=== PATIENT | female | born 1950 | race Caucasian/White ===

== ENCOUNTER 2016-11-18 15:33 | Emergency (ER) | payer MEDICARE ==
[2016-11-18 15:47] VITALS: TEMP 98.3
[2016-11-18] MEDS ORDERED: SODIUM CHLORIDE 0.9% 500 ML IV STA (16:11)
[2016-11-18] MEDS ORDERED: MECLIZINE 12.5 MG TAB PO STA (16:11)
--- NOTE | 2016-11-18 16:17 | ED ---
General Adult HPI - General Chief complaint: Dizziness Stated complaint: lightheaded dizzy Time Seen by Provider: 11/18/16 15:45 Source: patient, family, RN notes reviewed Mode of arrival: ambulatory Limitations: no limitations - History of Present Illness Initial comments: Chief complaint history of present illness; this is a 66-year-old female here with her . Patient reports that she bent down and became dizzy. Her helped her back to the house. Child bowel movement not loose. Slightly better at this time. She's had 3 of these dizzy episodes the last approximately one hour in the past several weeks. No headache. No chest pain or palpitations. She does have a history of the nares years ago. She does report taking Antivert with good results at that time. Denies any neuro deficits. She does suffer from seasonal ALLERGIES. - Related Data Home Medications Medication Instructions Recorded Confirmed Anastrozole [Arimidex] 1 mg PO DAILY 11/18/16 11/18/16 Calcium Carbonate/Vitamin D3 1 tab PO DAILY 11/18/16 11/18/16 [Calcium 600-Vit D3 400 Caplet] Cholecalciferol [Vitamin D3] 2,000 unit PO DAILY 11/18/16 11/18/16 Omeprazole [PriLOSEC] 20 mg PO AC-BRKFST 11/18/16 11/18/16 Spironolactone-Hctz 25-25Mg 0.5 tab PO DAILY 11/18/16 11/18/16 [Aldactazide 25-25Mg] Previous Rx's Medication Instructions Recorded Meclizine [Antivert] 25 mg PO TID #30 tab 11/18/16 Ondansetron Odt [Zofran ODT] 4 mg PO Q8HR PRN #5 tab 11/18/16 Allergies Allergy/AdvReac Type Severity Reaction Status Date / Time adhesive tape Allergy Rash/Hives Verified 11/18/16 16:23 codeine AdvReac Nausea Verified 11/18/16 16:23 Review of Systems ROS Statement: Those systems with pertinent positive or pertinent negative responses have been documented in the HPI. Review of systems. At this time the patient reports she's dizzy with head movement especially quickly left the right. Slightly nauseated but no vomiting. No chest palpitations. No shortness of breath and no neuro deficits other than dizziness. All systems are reviewed. Past medical problems significant for the nares years ago. Hypertension, GERD, breast cancer 2015 follow-up with surgery followed by chemotherapy. She also has chronically low platelets. The patient's surgeries include back surgery, mastectomy, total hysterectomy, bunions and knee scoping. The patient's family history no cancers or strokes. Patient has seasonal ALLERGIES and codeine upsets her stomach. Nonsmoker drinks alcohol rarely socially ROS Other: All systems not noted in ROS Statement are negative. Past Medical History Past Medical History: Cancer, GERD/Reflux, Hypertension Additional Past Medical History / Comment(s): vertigo History of Any Multi-Drug Resistant Organisms: None Reported Past Surgical History: Back Surgery, Breast Surgery, Hysterectomy, Orthopedic Surgery Additional Past Surgical History / Comment(s): ana luisa knee,bunions Past Psychological History: No Psychological Hx Reported Smoking Status: Never smoker Past Alcohol Use History: None Reported Past Drug Use History: None Reported General Exam - General Exam Comments Initial Comments: General: The patient is awake and alert, in no distress, and does not appear acutely ill. As a feeling slightly dizzy for several hours. She had 2 occasions in the last several weeks where after the dizziness started from bending over the last one away. No other associated sweats palpitations or chest pain. Mildly nauseated earlier. Vital signs show temperature 98.3 pulse 60 respiratory rate 20 pulse ox 99% room air blood pressure 130/74 Eye: Pupils are equal, round and reactive to light, extra-ocular movements are intact ; there is normal conjunctiva bilaterally. No signs of icterus. Ears, nose, mouth and throat: There are moist mucous membranes and no oral lesions. Neck: The neck is supple, there is no tenderness , no carotid bruit , no enlarged anterior cervical lymphadenopathy Cardiovascular: There is a regular rate and rhythm. No murmur, rub or gallop is appreciated. Respiratory: Lungs are clear to auscultation, respirations are non-labored, breath sounds are equal. No wheezes, stridor, rales, or rhonchi. Gastrointestinal: Soft, non-distended, non-tender abdomen without masses or organomegaly noted. There is no rebound or guarding present. No CVA tenderness. Bowel sounds are unremarkable. Back: There is no tenderness to palpation in the midline. There is no obvious deformity. No rashes noted. Musculoskeletal: Normal ROM, no tenderness, There is no pedal edema. There is no calf tenderness or swelling. Sensation intact. Pulses equal bilaterally 2+. Neurological: CN II-XII intact, There are no obvious motor or sensory deficits. Coordination appears grossly intact. Speech is normal. No focal or lateralizing findings. Dizziness does increase when she turns her head quickly left the right. No nystagmus. NIH scale performed on admission to the emergency room is 0. Skin: Skin is warm and dry and no rashes or lesions are noted. Limitations: no limitations Course Vital Signs 11/18/16 11/18/16 11/18/16 15:43 16:30 17:00 Temperature 98.3 F Pulse Rate 65 63 61 Respiratory 20 18 18 Rate Blood Pressure 138/74 133/75 162/84 O2 Sat by Pulse 99 100 100 Oximetry Medical Decision Making - Medical Decision Making Medical decision making; patient's white count 8.5 hemoglobin 15 hematocrit of 46 with a potassium 3.7. BUN 23 creatinine 0.75 and GFR greater than 60. Glucose 117. Patient remembered that she had a ten-day period of mild upper respiratory tract type symptoms recently. She states she is feeling better can turn her head left and right without getting severely dizzy but only mildly so. We discussed changing positions slowly taking meclizine 5 mg 3 times a day for 10 days. She'll also be given a prescription of Zofran for nausea. Advised follow -up with family physician return emergency room as needed. If she develops any numbness tingling or dysfunction to return emergency room immediately. Patient denies headache and again no evidence of any focal or lateralizing findings. - Lab Data Result diagrams: 11/18/16 16:25 11/18/16 16:25 Lab Results 11/18/16 11/18/16 Range/Units 16:25 16:25 WBC 8.5 (3.8-10.6) k/uL RBC 5.07 (3.80-5.40) m/uL Hgb 15.5 (11.4-16.0) gm/dL Hct 46.2 H (34.0-46.0) % MCV 91.1 (80.0-100.0) fL MCH 30.5 (25.0-35.0) pg MCHC 33.5 (31.0-37.0) g/dL RDW 12.9 (11.5-15.5) % Plt Count 86 L (150-450) k/uL Neutrophils % 86 % Lymphocytes % 9 % Monocytes % 3 % Eosinophils % 1 % Basophils % 1 % Neutrophils # 7.3 (1.3-7.7) k/uL Lymphocytes # 0.7 L (1.0-4.8) k/uL Monocytes # 0.3 (0-1.0) k/uL Eosinophils # 0.1 (0-0.7) k/uL Basophils # 0.1 (0-0.2) k/uL Sodium 141 (137-145) mmol/L Potassium 3.7 (3.5-5.1) mmol/L Chloride 104 (98-107) mmol/L Carbon Dioxide 29 (22-30) mmol/L Anion Gap 8 mmol/L BUN 23 H (7-17) mg/dL Creatinine 0.75 (0.52-1.04) mg/dL Est GFR (MDRD) Af Amer >60 (>60 ml/min/1.73 sqM) Est GFR (MDRD) Non-Af >60 (>60 ml/min/1.73 sqM) Glucose 117 H (74-99) mg/dL Calcium 10.0 (8.4-10.2) mg/dL Total Bilirubin 0.6 (0.2-1.3) mg/dL AST 26 (14-36) U/L ALT 41 (9-52) U/L Alkaline Phosphatase 96 (38-126) U/L Total Protein 7.3 (6.3-8.2) g/dL Albumin 4.4 (3.5-5.0) g/dL Disposition Clinical Impression: Benign positional vertigo Disposition: HOME SELF-CARE Condition: Fair Instructions: Benign Paroxysmal Positional Vertigo (ED), Dizziness (ED) Additional Instructions: Take meclizine 3 times daily for 10 days. Advance fluids. Use Zofran for nausea. Change positions slowly. Do not get out of bed quickly or standing up after going to the bathroom quickly and she may faint. Follow-up with family physician return emergency room as needed. If anytime you have any neurological deficits return emergency room immediately. Prescriptions: Meclizine [Antivert] 25 mg PO TID #30 tab Ondansetron Odt [Zofran ODT] 4 mg PO Q8HR PRN #5 tab PRN Reason: Nausea Time of Disposition: 18:14
[2016-11-18] MEDS ORDERED: LORazepam 2 MG/ML SYRINGE IV STA (16:28)
[2016-11-18 16:39] LABS: Basophils # (A) 0.1 k/uL (0-0.2); Basophils % (A) 1 %; CH 31.4; CHCM 34.6; Eosinophils # (A) 0.1 k/uL (0-0.7); Eosinophils % (A) 1 %; HCT 46.2 % (34.0-46.0); HGB 15.5 gm/dL (11.4-16.0); Luc # (Auto) 0.07; Luc % (Auto) 1; Lymphocytes # (A) 0.7 k/uL (1.0-4.8); Lymphocytes % (A) 9 %; MCH 30.5 pg (25.0-35.0); MCHC 33.5 g/dL (31.0-37.0); MCV 91.1 fL (80.0-100.0); Mean Platelet Volume 9.4; Monocytes # (A) 0.3 k/uL (0-1.0); Monocytes % (A) 3 %; Neutrophils # (A) 7.3 k/uL (1.3-7.7); Neutrophils % (A) 86 %; RBC 5.07 m/uL (3.80-5.40); RDW 12.9 % (11.5-15.5); WBC 8.5 k/uL (3.8-10.6); WBC (Perox) 8.27
[2016-11-18 16:43] LABS: ALT 41 U/L (9-52); AST 26 U/L (14-36); Alkaline Phosphatase 96 U/L (38-126); Anion Gap 8 mmol/L; Blood Urea Nitrogen 23 mg/dL (7-17); Carbon Dioxide 29 mmol/L (22-30); Chloride 104 mmol/L (98-107); Glucose 117 mg/dL (74-99); Non-African American GFR(MDRD) >60 (>60 ml/min/1.73 sqM); Potassium 3.7 mmol/L (3.5-5.1); Sodium 141 mmol/L (137-145); Total Bilirubin 0.6 mg/dL (0.2-1.3); Total Protein 7.3 g/dL (6.3-8.2)
[2016-11-18 18:30] VITALS: BP 152/82; PULSE 67; RESP 16
== END 2016-11-18 18:30 | disposition home or self-care (01) ==
LOC: EC 15:33
DX: H81.10 Benign paroxysmal vertigo, unspecified ear (principal); K21.9 Gastro-esophageal reflux disease without esophagitis; I10 Essential (primary) hypertension; Z85.3 Personal history of malignant neoplasm of breast; Z79.899 Other long term (current) drug therapy; Z88.5 Allergy status to narcotic agent; Z91.048 Other nonmedicinal substance allergy status
CPT/HCPCS: 36415; 80053; 85025; 99284; 96374; J2060

== ENCOUNTER 2024-05-22 05:45 | Emergency (ER) | payer MEDICARE ==
[2024-05-22 05:55] VITALS: RESP 18
[2024-05-22 06:35] LABS: ALT 22 U/L (4-34); AST 26 U/L (14-36); African American GFR (CKD) >90 (>60 ml/min/1.73 sqM); Albumin 4.7 g/dL (3.5-5.0); Alkaline Phosphatase 114 U/L (38-126); Anion Gap 8 mmol/L; Blood Urea Nitrogen 15 mg/dL (7-17); Calcium 10.2 mg/dL (8.4-10.2); Carbon Dioxide 25 mmol/L (22-30); Chloride 106 mmol/L (98-107); Glucose 121 mg/dL (74-99); Magnesium 1.6 mg/dL (1.6-2.3); Non-African American GFR(CKD) 89 (>60 ml/min/1.73 sqM); Potassium 3.5 mmol/L (3.5-5.1); Sodium 139 mmol/L (137-145); Total Bilirubin 1.3 mg/dL (0.2-1.3); Total Protein 7.5 g/dL (6.3-8.2)
[2024-05-22 06:37] LABS: INR 0.9 (<1.2); Partial Thromboplastin Time 22.6 sec (22.0-30.0); Prothrombin Time 10.1 sec (10.0-12.5)
--- NOTE | 2024-05-22 06:44 | XR ---
EXAMINATION TYPE: XR chest 2V DATE OF EXAM: 05/22/2024 COMPARISON: NONE HISTORY: Syncope. TECHNIQUE: Frontal and lateral views of the chest are obtained. FINDINGS: There is patchy bibasilar opacity. No pleural effusion or pneumothorax seen bilaterally.. The cardiac silhouette size is within normal limits. The osseous structures are intact. IMPRESSION: Patchy bibasilar opacity favors atelectasis. [facility], , 05/22/2024 6:42 AM
--- NOTE | 2024-05-22 06:46 | XR ---
EXAMINATION TYPE: XR shoulder complete RT DATE OF EXAM: 05/22/2024 CLINICAL HISTORY: Pain TECHNIQUE: Three views of the right shoulder are obtained. COMPARISON: None. FINDINGS: There is no acute fracture/dislocation evident in the right shoulder. Moderate to severe n arrowing with mild spurring at the acromioclavicular joint. Rounded hyperdensities along the superior aspect of the humeral head could reflect intra-articular loose bodies. The visualized ribs are intac t and unremarkable. Surgical clips overlie the right lateral ribs inferiorly. IMPRESSION: As above. [facility], , 05/22/2024 6:43 AM
--- NOTE | 2024-05-22 06:47 | ED ---
General Adult HPI - General Source: patient, family, RN notes reviewed Mode of arrival: wheelchair Limitations: no limitations <Ranjana Rosario - Last Filed: 05/22/24 06:46> <Kayla Silverio - Last Filed: 05/22/24 17:27> - General Chief complaint: Syncope Stated complaint: Syncope Time Seen by Provider: 05/22/24 06:02 - History of Present Illness Initial comments: [id number] female presents emergency department with her for chief complaint of a syncopal event. Patient states that she was in the bathroom and believes that she passed out because she does not know what happens afterwards. She states that she is having pain to the left side of her face. Patient is searching for words on questioning and patient's states that this is a change in her baseline. (Ranjnaa Rosario) 74-year-old female presents to the emergency department reporting a possible syncopal episode. Patient states that she awoke at 4 AM to use the restroom. She found herself down on the ground. Is unsure if she passed out or was so weak that she just slumped to the floor. Patient has visible head injury to the left taoism. She does not take any blood thinners. She denies that she was on the floor for a long. states that he was aware that she had got up and heard her fall. She denies any chest pain or difficulty breathing. No nausea or vomiting. Does admit to a mild left-sided headache. No visual changes. Patient able to provide history without assistance. She has been able to ambulate without difficulty. Denies vertiginous symptoms. No lateralizing weakness. No history of any cardiac disease. No other alleviating, precipitating or modifying factors (Kayla Silverio) - Related Data Home Medications Medication Instructions Recorded Confirmed Anastrozole [Arimidex] 1 mg PO DAILY 11/18/16 11/18/16 Calcium Carbonate/Vitamin D3 1 tab PO DAILY 11/18/16 11/18/16 [Calcium 600-Vit D3 400 Caplet] Cholecalciferol [Vitamin D3] 2,000 unit PO DAILY 11/18/16 11/18/16 Omeprazole [PriLOSEC] 20 mg PO AC-BRKFST 11/18/16 11/18/16 Spironolactone-Hctz 25-25Mg 0.5 tab PO DAILY 11/18/16 11/18/16 [Aldactazide 25-25Mg] Previous Rx's Medication Instructions Recorded Meclizine [Antivert] 25 mg PO TID #30 tab 11/18/16 Ondansetron Odt [Zofran ODT] 4 mg PO Q8HR PRN #5 tab 11/18/16 Allergies Allergy/AdvReac Type Severity Reaction Status Date / Time adhesive tape Allergy Rash/Hives Verified 05/22/24 05:55 codeine AdvReac Nausea Verified 05/22/24 05:55 Review of Systems ROS Other: All systems not noted in ROS Statement are negative. <Ranjana Rosario - Last Filed: 05/22/24 06:46> ROS Other: All systems not noted in ROS Statement are negative. <Kayla Silverio - Last Filed: 05/22/24 17:27> ROS Statement: Those systems with pertinent positive or pertinent negative responses have been documented in the HPI. Past Medical History Past Medical History: Cancer, GERD/Reflux, Hypertension Additional Past Medical History / Comment(s): vertigo History of Any Multi-Drug Resistant Organisms: None Reported Past Surgical History: Back Surgery, Breast Surgery, Hysterectomy, Orthopedic Surgery Additional Past Surgical History / Comment(s): ana luisa knee,bunions Past Psychological History: No Psychological Hx Reported Smoking Status: Never smoker Past Alcohol Use History: None Reported Past Drug Use History: None Reported <Ranjana Rosario - Last Filed: 05/22/24 06:46> General Exam Limitations: no limitations <Ranjana Rosario - Last Filed: 05/22/24 06:46> General appearance: alert, in no apparent distress Head exam: Present: normocephalic, other (Abrasion to the left forehead and left taoism. Small hematoma in the infraorbital region) Eye exam: Present: normal appearance, PERRL, EOMI. Absent: scleral icterus, c onjunctival injection, periorbital swelling ENT exam: Present: normal exam, mucous membranes moist Neck exam: Present: normal inspection. Absent: tenderness, meningismus, lymphadenopathy Respiratory exam: Present: normal lung sounds bilaterally. Absent: respiratory distress, wheezes, rales, rhonchi, stridor Cardiovascular Exam: Present: regular rate, normal rhythm, normal heart sounds. Absent: systolic murmur, diastolic murmur, rubs, gallop, clicks GI/Abdominal exam: Present: soft, normal bowel sounds. Absent: distended, tenderness, guarding, rebound, rigid Extremities exam: Present: normal inspection, full ROM, normal capillary refill. Absent: tenderness, pedal edema, joint swelling, calf tenderness Back exam: Present: normal inspection Neurological exam: Present: alert, oriented X3, CN II-XII intact Psychiatric exam: Present: normal affect, normal mood Skin exam: Present: warm, dry, intact, abrasion (Over the left knee). Absent: rash <Kalya Silverio - Last Filed: 05/22/24 17:27> - General Exam Comments Initial Comments: Visual Physical Exam Vital signs reviewed General: Well-appearing, nontoxic, no acute distress. Head: Normocephalic, atraumatic Eyes: PERRLA, EOMI ENT: Airway patent Chest: Nonlabored breathing Skin: No visual rash, normal skin tone Neuro: Alert and oriented 3 Musculoskeletal: No gross abnormalities (Ranjana Rosario) Course Vital Signs 05/22/24 05/22/24 05/22/24 05:51 08:27 09:52 Temperature 97.7 F Pulse Rate 86 64 Pulse Rate [ 68 Sitting] Pulse Rate [ 69 Standing Licensing Analyst ] Pulse Rate [ 66 Supine Licensing Analyst] Respiratory 18 18 18 Rate Blood Pressure 136/92 148/98 Blood Pressure 149/91 [Left Arm Sitting] Blood Pressure 148/89 [Left Arm Standing] Blood Pressure 152/81 [Left Arm Supine] O2 Sat by Pulse 98 99 Oximetry 05/22/24 10:51 Temperature 98.1 F Pulse Rate 93 Pulse Rate [ Sitting] Pulse Rate [ Standing Licensing Analyst ] Pulse Rate [ Supine Licensing Analyst] Respiratory 18 Rate Blood Pressure 130/88 Blood Pressure [Left Arm Sitting] Blood Pressure [Left Arm Standing] Blood Pressure [Left Arm Supine] O2 Sat by Pulse 95 Oximetry Medical Decision Making - Lab Data Result diagrams: 05/22/24 06:04 <Ranjana Rosario - Last Filed: 05/22/24 06:46> - Lab Data Result diagrams: 05/22/24 06:04 05/22/24 06:04 <Kayla Silverio - Last Filed: 05/22/24 17:27> - Medical Decision Making I completed the quick note portion of this chart signed Ranjana Rosario PA-C (Ranjana Rosario) Was pt. sent in by a medical professional or institution (JUSTIN Dan, MORNING CAREGIVER, urgent care, hospital, or long term...) When possible be specific @ -No Did you speak to anyone other than the patient for history (EMS, parent, family, police, friend...)? What history was obtained from this source @ -The does help provide some history Did you review nursing and triage notes (agree or disagree)? Why? @ -I reviewed and agree with nursing and triage notes Were old charts reviewed (outside hosp., previous admission, EMS record, old EKG, old radiological studies, urgent care reports/EKG's, long term records)? Report findings @ -No old charts were reviewed Differential Diagnosis (chest pain, altered mental status, abdominal pain women, abdominal pain men, vaginal bleeding, weakness, fever, dyspnea, syncope, headache, dizziness, GI bleed, back pain, seizure, CVA, palpatations, mental health, musculoskeletal)? @ -Differential Syncope: Valvular disease, hypertrophic cardiomyopathy, pulmonary embolism, tamponade, tachycardia, bradycardia, PA, hypovolemia, hemorrhage, dissection, anemia, intracranial hemorrhage, seizure, hypoglycemia, carbon monoxide poisoning, this is not meant to be an all-inclusive list. EKG interpreted by me (3pts min.). @ -Yes and demonstrates sinus rhythm with rate of 83. ND interval 162. QRS 91. QTc of 401. No acute ST segment elevations depressions X-rays interpreted by me (1pt min.). @ -Yes and demonstrates no acute process CT interpreted by me (1pt min.). @ -Yes and demonstrates no acute process U/S interpreted by me (1pt. min.). @ -None done What testing was considered but not performed or refused? (CT, X-rays, U/S, labs)? Why? @ -Carotid Dopplers and echo was considered however patient did not want to be admitted What meds were considered but not given or refused? Why? @ -None Did you discuss the management of the patient with other professionals (professionals i.e. JUSTIN Dan, MORNING CAREGIVER, lab, RT, psych nurse, social media marketing specialist, credit control manager, teacher, cash management officer, director case management)? Give summary @ -No Was smoking cessation discussed for >3mins.? @ -No Was critical care preformed (if so, how long)? @ -No Were there social determinants of health that impacted care today? How? (Homelessness, low income, unemployed, alcoholism, drug addiction, transportation, low edu. Level, literacy, decrease access to med. care, [facility], rehab)? @ -No Was there de-escalation of care discussed even if they declined (Discuss DNR or withdrawal of care, Hospice)? DNR status @ -No What co-morbidities impacted this encounter? (DM, HTN, Smoking, COPD, CAD, Cancer, CVA, ARF, Chemo, Hep., AIDS, mental health diagnosis, sleep apnea, morbid obesity)? @ -None Was patient admitted / discharged? Hospital course, mention meds given and route, prescriptions, significant lab abnormalities, going to OR and other pertinent info. @ -Upon arrival patient seen and evaluated in room 9. Thorough history and physical exam was performed. IV access was established. Laboratory studies are conducted. Chest x-ray was performed. Patient remains on continuous pulse ox and cardiac monitoring. Results are discussed with the patient. Patient believes that her symptoms are due to lack of sleep due to chronic right shoulder pain. She does want a go home at this time. I did discuss admitting the patient for echo and carotids however patient does not want to be admitted. She will be discharged home at this time. Instructed to follow-up with her primary care doctor. Recommend further workup for her syncope to include echo, carotids and Holter monitoring. If the patient has any new or worsening symptoms she should is to return to the emergency department. Patient agreeable plan was discharged in stable condition Undiagnosed new problem with uncertain prognosis? @ -Yes Drug Therapy requiring intensive monitoring for toxicity (Heparin, Nitro, Insuli n, Cardizem)? @ -No Were any procedures done? @ -No Diagnosis/symptom? @ -Acute fall, suspected syncope, chronic right shoulder pain Acute, or Chronic, or Acute on Chronic? @ -Acute Uncomplicated (without systemic symptoms) or Complicated (systemic symptoms)? @ -Complicated Side effects of treatment? @ -No Exacerbation, Progression, or Severe Exacerbation? @ -No Poses a threat to life or bodily function? How? (Chest pain, USA, PA, pneumonia, PE, COPD, DKA, ARF, appy, cholecystitis, CVA, Diverticulitis, Homicidal, Suicidal, threat to staff... and all critical care pts) @ -No (Naveen Silverioah Sara) - Lab Data Lab Results 05/22/24 05/22/24 05/22/24 Range/Units 06:04 06:04 06:04 WBC 8.7 (3.8-10.6) k/uL RBC 5.88 H (3.80-5.40) m/uL Hgb 17.2 H (11.4-16.0) gm/dL Hct 53.1 H (34.0-46.0) % MCV 90.4 (80.0-100.0) fL MCH 29.3 (25.0-35.0) pg MCHC 32.4 (31.0-37.0) g/dL RDW 13.3 (11.5-15.5) % Plt Count 74 L (150-450) k/uL MPV 13.0 Neutrophils % 76 % Lymphocytes % 15 % Monocytes % 6 % Eosinophils % 1 % Basophils % 1 % Neutrophils # 6.6 (1.3-7.7) k/uL Lymphocytes # 1.3 (1.0-4.8) k/uL Monocytes # 0.5 (0-1.0) k/uL Eosinophils # 0.1 (0-0.7) k/uL Basophils # 0.1 (0-0.2) k/uL Manual Slide Review Performed Large Platelets Present PT 10.1 (10.0-12.5) sec INR 0.9 (<1.2) APTT 22.6 (22.0-30.0) sec Sodium 139 (137-145) mmol/L Potassium 3.5 (3.5-5.1) mmol/L Chloride 106 (98-107) mmol/L Carbon Dioxide 25 (22-30) mmol/L Anion Gap 8 mmol/L BUN 15 (7-17) mg/dL Creatinine 0.63 (0.52-1.04) mg/dL Est GFR (CKD-EPI)AfAm >90 (>60 ml/min/1.73 sqM) Est GFR (CKD-EPI)NonAf 89 (>60 ml/min/1.73 sqM) Glucose 121 H (74-99) mg/dL Calcium 10.2 (8.4-10.2) mg/dL Magnesium 1.6 (1.6-2.3) mg/dL Total Bilirubin 1.3 (0.2-1.3) mg/dL AST 26 (14-36) U/L ALT 22 (4-34) U/L Alkaline Phosphatase 114 (38-126) U/L Troponin I (0.000-0.034) ng/mL Total Protein 7.5 (6.3-8.2) g/dL Albumin 4.7 (3.5-5.0) g/dL 05/22/24 Range/Units 06:04 WBC (3.8-10.6) k/uL RBC (3.80-5.40) m/uL Hgb (11.4-16.0) gm/dL Hct (34.0-46.0) % MCV (80.0-100.0) fL MCH (25.0-35.0) pg MCHC (31.0-37.0) g/dL RDW (11.5-15.5) % Plt Count (150-450) k/uL MPV Neutrophils % % Lymphocytes % % Monocytes % % Eosinophils % % Basophils % % Neutrophils # (1.3-7.7) k/uL Lymphocytes # (1.0-4.8) k/uL Monocytes # (0-1.0) k/uL Eosinophils # (0-0.7) k/uL Basophils # (0-0.2) k/uL Manual Slide Review Large Platelets PT (10.0-12.5) sec INR (<1.2) APTT (22.0-30.0) sec Sodium (137-145) mmol/L Potassium (3.5-5.1) mmol/L Chloride (98-107) mmol/L Carbon Dioxide (22-30) mmol/L Anion Gap mmol/L BUN (7-17) mg/dL Creatinine (0.52-1.04) mg/dL Est GFR (CKD-EPI)AfAm (>60 ml/min/1.73 sqM) Est GFR (CKD-EPI)NonAf (>60 ml/min/1.73 sqM) Glucose (74-99) mg/dL Calcium (8.4-10.2) mg/dL Magnesium (1.6-2.3) mg/dL Total Bilirubin (0.2-1.3) mg/dL AST (14-36) U/L ALT (4-34) U/L Alkaline Phosphatase (38-126) U/L Troponin I <0.012 (0.000-0.034) ng/mL Total Protein (6.3-8.2) g/dL Albumin (3.5-5.0) g/dL Disposition <Ranjana Rosario - Last Filed: 05/22/24 06:46> Is patient prescribed a controlled substance at d/c from ED?: No Time of Disposition: : <Kayla Silverio - Last Filed: 05/22/24 17:27> Clinical Impression: Syncope, Blunt head trauma, Right shoulder pain Disposition: HOME SELF-CARE Condition: Stable Instructions (If sedation given, give patient instructions): Syncope (ED) Additional Instructions: Please follow-up with your orthopedic surgeon in regards to your right shoulder pain. Please follow-up with your primary care doctor in 2-4 days for your pa ssing out episode. I recommend an echo and carotid Dopplers for evaluation of your passing out episode. Return for any new or worsening symptoms. You may take Tylenol, 500 mg every 6 hours for pain control with a maximum of 3000 mg in 24 hours Referrals: Mary Sawyer MD [Primary Care Provider] - 1-2 days
--- NOTE | 2024-05-22 06:55 | CT ---
EXAMINATION TYPE: CT brain cspine wo con DATE OF EXAM: 05/22/2024 COMPARISON: NONE HISTORY: Fall and confusion CT DLP: 1370 mGycm. Automated Exposure Control for Dose Reduction was Utilized. TECHNIQUE: CT scan of the head and cervical spine are performed without contrast. FINDINGS: There is no acute intracranial hemorrhage or midline shift identified. Mild ventricular a nd sulcal prominence. Mild low-attenuation in the periventricular white matter. Left-sided aphakia. T he calvarium is intact. The paranasal sinuses are grossly clear. Cervical spine is visualized in its entirety from C1 through upper thoracic levels and demonstrates s atisfactory alignment without evidence of acute fracture or dislocation. Prevertebral soft tissue ap pears within normal limits. The C1-C2 articulation is within normal limits on the coronal images. V ertebral bodies and disc space heights are maintained. Spinal canal is preserved. Review of axial christo ges shows multilevel uncovertebral facet degenerative changes bilaterally. There is some right apical scarring. No pneumothorax seen bilaterally. Thyroid gland is within normal limits. IMPRESSION: 1. There is no acute fracture or dislocation evident in the cervical spine. 2. No acute intracranial hemorrhage or midline shift is seen. [facility], , 05/22/2024 6:46 AM
[2024-05-22 07:03] LABS: Basophils # (A) 0.1 k/uL (0-0.2); Basophils % (A) 1 %; Eosinophils # (A) 0.1 k/uL (0-0.7); Eosinophils % (A) 1 %; HCT 53.1 % (34.0-46.0); HGB 17.2 gm/dL (11.4-16.0); Lymphocytes # (A) 1.3 k/uL (1.0-4.8); Lymphocytes % (A) 15 %; MCH 29.3 pg (25.0-35.0); MCHC 32.4 g/dL (31.0-37.0); MCV 90.4 fL (80.0-100.0); Monocytes # (A) 0.5 k/uL (0-1.0); Monocytes % (A) 6 %; Neutrophils # (A) 6.6 k/uL (1.3-7.7); Neutrophils % (A) 76 %; RBC 5.88 m/uL (3.80-5.40); RDW 13.3 % (11.5-15.5); WBC 8.7 k/uL (3.8-10.6)
[2024-05-22 07:57] LABS: Large Platelets Present; Platelet Count 74 k/uL (150-450)
[2024-05-22 11:05] VITALS: BP 130/88; PULSE 93; TEMP 98.1
== END 2024-05-22 11:05 | disposition home or self-care (01) ==
LOC: EC 05:45
CPT/HCPCS: 36415; 70450; 71046; 72125; 80053; 83735; 84484; 85025; 85610; 85730; 93005; 99284